=== PATIENT | male | born 1965 | race African-American/Black ===

== ENCOUNTER → 2017-07-31 | Outpatient (CLI) | payer OTHER | END | disposition home or self-care (01) | LOC: PF 07:51 | DX: M17.0 Bilateral primary osteoarthritis of knee (principal) | CPT/HCPCS: 73562; 94010 ==

== ENCOUNTER 2017-08-12 12:43 | Emergency (ER) | payer OTHER | END 2017-08-12 13:45 | disposition home or self-care (01) | LOC: ER 12:43 | DX: M79.1 Myalgia (principal); M54.5 Low back pain; M25.562 Pain in left knee; E11.9 Type 2 diabetes mellitus without complications; E78.00 Pure hypercholesterolemia, unspecified; I10 Essential (primary) hypertension; Z91.040 Latex allergy status; V47.6XXA Car passenger injured in collision with fixed or stationary object in traffic accident, initial encounter; Y93.89 Activity, other specified; Y99.8 Other external cause status; Y92.481 Parking lot as the place of occurrence of the external cause | CPT/HCPCS: 99283 ==

== ENCOUNTER → 2020-02-16 | Outpatient (CLI) | payer OTHER ==
[2017-08-12 12:49] VITALS: BP 150/81
[~2020-02-16] MED LIST: CYCL5TAB PO
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
== END ==
LOC: KCIC 11:06
PROVIDERS: ATTEND Family Medicine
DX: M47.816 Spondylosis without myelopathy or radiculopathy, lumbar region (principal); M43.07 Spondylolysis, lumbosacral region; Z68.43 Body mass index [BMI] 50.0-59.9, adult
CPT/HCPCS: 72100